=== PATIENT | female | born 1940 | race Two or more races ===

== ENCOUNTER 2019-12-24 14:06 | Emergency (ER) | payer OTHER ==
[~2019-12-24] VITALS: Ht 152.4 cm; Wt 104.3 kg
[2019-12-24] MEDS ORDERED: ATACAND16 MG (14:19)
[2019-12-24] MEDS ORDERED: ADULT ASPIRIN81 MG (14:20)
[2019-12-24] MEDS ORDERED: GLIPIZIDE XL5 MG (14:20)
== END 2019-12-24 18:00 | disposition home or self-care (01) ==
LOC: ER 14:06
DX: N30.81 Other cystitis with hematuria (principal); B96.29 Other Escherichia coli [E. coli] as the cause of diseases classified elsewhere; Z03.818 Encounter for observation for suspected exposure to other biological agents ruled out

== ENCOUNTER 2020-07-09 14:06 | Emergency (ER) | payer OTHER ==
[~2020-07-09] VITALS: Ht 162.6 cm; Wt 80.7 kg
[~2020-07-09 14:06] MED LIST: ADULT ASPIRIN81 MG; ATACAND16 MG; GLIPIZIDE XL5 MG
== END 2020-07-09 18:16 | disposition home or self-care (01) ==
LOC: ER 14:06
DX: R10.13 Epigastric pain (principal)

== ENCOUNTER 2020-08-16 14:26 | Emergency (ER) | payer OTHER ==
[~2020-08-16] VITALS: Ht 152.4 cm; Wt 106.1 kg
[2020-08-16] MEDS ORDERED: CRESTOR10 MG (14:44)
[2020-08-16] MEDS ORDERED: NEURONTIN300 MG (14:44)
== END 2020-08-16 17:43 | disposition home or self-care (01) ==
LOC: ER 14:26
DX: R55 Syncope and collapse (principal)

== ENCOUNTER 2020-08-21 10:13 | Emergency (ER) | payer OTHER ==
[~2020-08-21] VITALS: Ht 152.4 cm; Wt 106.1 kg
[~2020-08-21 10:13] MED LIST changes: +CRESTOR10 MG; +NEURONTIN300 MG
== END 2020-08-21 13:01 | disposition home or self-care (01) ==
LOC: ER 10:13
DX: H60.8X2 Other otitis externa, left ear (principal); M62.830 Muscle spasm of back; R42 Dizziness and giddiness

== ENCOUNTER 2020-10-01 09:01 | Emergency (ER) | payer OTHER ==
[~2020-10-01] VITALS: Ht 152.4 cm; Wt 101.2 kg
[2020-10-01] MEDS ORDERED: MECLIZINE HCL25 MG PO (16:11)
== END 2020-10-01 16:25 | disposition home or self-care (01) ==
LOC: ER 09:01
DX: S40.022A Contusion of left upper arm, initial encounter (principal); M79.632 Pain in left forearm; R42 Dizziness and giddiness; W18.09XA Striking against other object with subsequent fall, initial encounter; Y93.E8 Activity, other personal hygiene; Y92.012 Bathroom of single-family (private) house as the place of occurrence of the external cause; Y99.8 Other external cause status

== ENCOUNTER 2021-05-28 09:41 | Emergency (ER) | payer OTHER ==
[~2021-05-28] VITALS: Ht 152.4 cm; Wt 106.6 kg
[~2021-05-28 09:41] MED LIST changes: +MECLIZINE HCL25 MG PO
== END 2021-05-28 13:14 | disposition home or self-care (01) ==
LOC: ER 09:41
DX: M25.512 Pain in left shoulder (principal); M19.90 Unspecified osteoarthritis, unspecified site

== ENCOUNTER 2021-06-20 14:01 | Emergency (ER) | payer OTHER ==
[~2021-06-20] VITALS: Ht 152.4 cm; Wt 106.6 kg
[2021-06-20] MEDS ORDERED: NORFLEX100MG PO (17:47)
[2021-06-20] MEDS ORDERED: KETO10TA2 PO (17:47)
== END 2021-06-20 17:51 | disposition home or self-care (01) ==
LOC: ER 14:01
DX: S39.93XA Unspecified injury of pelvis, initial encounter (principal); W18.30XA Fall on same level, unspecified, initial encounter; Y93.9 Activity, unspecified; Y92.019 Unspecified place in single-family (private) house as the place of occurrence of the external cause